=== PATIENT | female | born 1965 | race Caucasian/White ===

== ENCOUNTER 2016-09-07 20:22 | Emergency (ER) | payer BC, OTHER ==
[~2016-09-07] VITALS: Ht 160 cm; Wt 62.0 kg
[~2016-09-07 20:22] MED LIST: VALS160T20
[2016-09-07 20:40] VITALS: Ht 160 cm; Wt 62.0 kg
[2016-09-07 21:23] VITALS: TEMP 97
[2016-09-07 21:44] LABS: ADD SCAN DIFF NO
[2016-09-07 21:47] LABS: BASOPHILS % 0.4 % (0.0-2.0); EOSINOPHILS # 0.1 10^3/ul (0.0-0.5); EOSINOPHILS % 1.1 % (0.0-7.0); HEMATOCRIT 43.5 % (37.0-47.0); HEMOGLOBIN 14.6 g/dl (12.0-16.0); LYMPHOCYTES # 2.3 10^3/ul (0.8-2.9); LYMPHOCYTES % 30.8 % (15.0-51.0); MEAN CORPUSCULAR HEMOGLOBIN 30.2 pg (29.0-33.0); MEAN CORPUSCULAR HGB CONC 33.6 g/dl (32.0-37.0); MEAN CORPUSCULAR VOLUME 90.1 fl (82.0-101.0); MEAN PLATELET VOLUME 9.4 fl (7.4-10.4); MONOCYTE # 0.5 10^3/ul (0.3-0.9); MONOCYTES % 6.8 % (0.0-11.0); NEUTROPHIL # 4.5 10^3/ul (1.6-7.5); NEUTROPHILS % 60.8 % (39.0-77.0); PLATELET COUNT 355 10^3/UL (140-415); RED BLOOD COUNT 4.83 10^6/ul (4.20-5.40); RED CELL DISTRIBUTION WIDTH 13.3 % (11.5-14.5); WHITE BLOOD COUNT 7.4 10^3/ul (4.8-10.8)
[2016-09-07 21:49] LABS: ADD UMIC YES; UR ASCORBIC ACID NEGATIVE (NEGATIVE); UR BILIRUBIN (Dip) NEGATIVE (NEGATIVE); UR BLOOD (Dip) 3+ mg/dL (NEGATIVE); UR CLARITY CLEAR (CLEAR); UR COLOR YELLOW (YELLOW); UR GLUCOSE (Dip) 3+ mg/dL (NEGATIVE); UR KETONES (Dip) NEGATIVE (NEGATIVE); UR LEUKOCYTE ESTERASE (Dip) NEGATIVE Leu/ul (NEGATIVE); UR NITRITE (Dip) NEGATIVE (NEGATIVE); UR RBC 7 /HPF (0-5); UR SPECIFIC GRAVITY (Dip) 1.025 (1.003-1.030); UR TOTAL PROTEIN (Dip) NEGATIVE (NEGATIVE); UR UROBILINOGEN (Dip) NEGATIVE (NEGATIVE)
[2016-09-07 22:04] LABS: INR 0.91; PROTIME 12.3 Sec (12.2-14.2)
[2016-09-07 22:05] LABS: PARTIAL THROMBOPLASTIN TIME 26.7 Sec (25.0-35.0)
[2016-09-07 22:15] LABS: ALANINE AMINOTRANSFERASE 25 IU/L (13-69); ALBUMIN 4.9 g/dl (3.3-4.9); ALBUMIN/GLOBULIN RATIO 1.63; ALKALINE PHOSPHATASE 91 IU/L (42-121); AMYLASE 97 U/L (11-123); ANION GAP 16 (8-16); ASPARTATE AMINO TRANSFERASE 27 IU/L (15-46); BILIRUBIN,INDIRECT 0.2 mg/dl (0-1.1); BILIRUBIN,TOTAL 0.2 mg/dl (0.2-1.3); BLOOD UREA NITROGEN 16 mg/dl (7-20); CALCIUM 9.8 mg/dl (8.4-10.2); CARBON DIOXIDE 27 mmol/L (21-31); CHLORIDE 102 mmol/L (97-110); CREATININE 0.66 mg/dl (0.44-1.00); GLUCOSE 91 mg/dl (70-220); POTASSIUM 3.4 mmol/L (3.5-5.1); SODIUM 142 mmol/L (135-144); TOTAL PROTEIN 7.9 g/dl (6.1-8.1)
[2016-09-07 22:28] LABS: TROPONIN-I < 0.012 ng/ml (0.00-0.12)
--- NOTE | 2016-09-07 23:38 | RADRPT ---
PROCEDURE: Chest. CLINICAL INDICATION: Chest pain. TECHNIQUE: Single frontal view of the chest was obtained. COMPARISON: None. FINDINGS: The cardiac silhouette is within normal limits. The aortic arch is unremarkable. There is no focal consolidation, vascular congestion or pleural effusion. There is no pneumothorax. IMPRESSION: No evidence for active cardiopulmonary disease. .Chava Garcia MD, MD Date Time Electronically viewed and signed by .Chava Garcia MD, MD on 09/07/2016 23:37 .T/
--- NOTE | 2016-09-08 00:04 | ERD ---
ER Documentation Chief Complaint Date/Time DATE: 09/08/16 TIME: 00:03 Chief Complaint generalized weakness since yesterday with r jaw pain HPI 51-year-old with generalized weakness since yesterday with right jaw pain. Patient does not has felt generally weak with no focal neurological complaints. Denies any fevers or chills. Denies any nausea or vomiting. Denies any other current complaints. ROS All systems reviewed and are negative except as per history of present illness. Medications Home Meds Reported Medications Valsartan* (Diovan*) 160 Mg Tablet 04/19/10 Allergies Allergies: Coded Allergies: Penicillins (Verified Allergy, Mild, SOB, BODY SWALLON, 04/19/10) Tetracycline (Verified Allergy, Mild, DIFFICULTY BREATHING SWALLON BODY, ) PMhx/Soc History of Surgery: Yes (Hysty, colon, ) Anesthesia Reaction: No Hx Neurological Disorder: No Hx Respiratory Disorders: No Hx Cardiac Disorders: No Hx Psychiatric Problems: No Hx Miscellaneous Medical Probl: No Hx Alcohol Use: Yes Hx Substance Use: No Hx Tobacco Use: Yes Smoking Status: Current some day smoker Physical Exam Vitals Vital Signs Date Time Temp Pulse Resp B/P Pulse Ox O2 Delivery O2 Flow Rate FiO2 09/07/16 23:12 71 18 143/63 99 Room Air 09/07/16 21:23 97.0 77 18 120/79 98 Room Air 09/07/16 20:40 97.4 86 18 136/68 100 Physical Exam Const: [] Head: Atraumatic Eyes: Normal Conjunctiva ENT: Normal External Ears, Nose and Mouth. Neck: Full range of motion..~ No meningismus. Resp: Clear to auscultation bilaterally Cardio: Regular rate and rhythm, no murmurs Abd: Soft, non tender, non distended. Normal bowel sounds Skin: No petechiae or rashes Back: No midline or flank tenderness Ext: No cyanosis, or edema Neur: Awake and alert Psych: Normal Mood and Affect Result Diagram: 09/07/16212709/07/162127 Results 24 hrs Laboratory Tests Test 09/07/16 21:20 09/07/16 21:28 Urine Color YELLOW Urine Clarity CLEAR Urine pH 5.0 Urine Specific [place] 1.025 Urine Ketones NEGATIVEmg/dL Urine Nitrite NEGATIVEmg/dL Urine Bilirubin NEGATIVEmg/dL Urine Urobilinogen NEGATIVEmg/dL Urine Leukocyte Esterase NEGATIVELeu/ul Urine Microscopic RBC 7/HPF Urine Microscopic WBC 1/HPF Urine Hemoglobin 3+mg/dL Urine Glucose 3+mg/dL Urine Total Protein NEGATIVEmg/dl White Blood Count 7.410^3/ul Red Blood Count 4.8310^6/ul Hemoglobin 14.6g/dl Hematocrit 43.5% Mean Corpuscular Volume 90.1fl Mean Corpuscular Hemoglobin 30.2pg Mean Corpuscular Hemoglobin Concent 33.6g/dl Red Cell Distribution Width 13.3% Platelet Count 16916^3/UL Mean Platelet Volume 9.4fl Neutrophils % 60.8% Lymphocytes % 30.8% Monocytes % 6.8% Eosinophils % 1.1% Basophils % 0.4% Nucleated Red Blood Cells % 0.0/100WBC Neutrophils # 4.510^3/ul Lymphocytes # 2.310^3/ul Monocytes # 0.510^3/ul Eosinophils # 0.110^3/ul Basophils # 0.010^3/ul Nucleated Red Blood Cells # 0.010^3/ul Prothrombin Time 12.3Sec Prothrombin Time Ratio 1.0 INR International Normalized Ratio 0.91 Activated Partial Thromboplast Time 26.7Sec Sodium Level 142mmol/L Potassium Level 3.4mmol/L Chloride Level 102mmol/L Carbon Dioxide Level 27mmol/L Anion Gap 16 Blood Urea Nitrogen 16mg/dl Creatinine 0.66mg/dl Glucose Level 91mg/dl Calcium Level 9.8mg/dl Total Bilirubin 0.2mg/dl Direct Bilirubin 0.00mg/dl Indirect Bilirubin 0.2mg/dl Aspartate Amino Transf (AST/SGOT) 27IU/L Alanine Aminotransferase (ALT/SGPT) 25IU/L Alkaline Phosphatase 91IU/L Troponin I < 0.012ng/ml Total Protein 7.9g/dl Albumin 4.9g/dl Globulin 3.00g/dl Albumin/Globulin Ratio 1.63 Amylase Level 97U/L Lipase 126U/L Procedures/MDM EKG: Rate/Rhythm: [Normal Sinus Rhythm] QRS, ST, T-waves: [No changes consistent w/ acute ischemia] Impression: [No evidence of ischemia or arrhythmia] Chest X-ray 1V Interpreted by me: Soft Tissue: No acute abnormalities Bones: No acute abnormalities Mediastinum/Cardiac Silhouette/Lungs: [No acute abnormalities] Medical decision-making: This very pleasant patient comes with generalized weakness. At this point clinically stable for outpatient management. Patient will be discharged home. Return for worsening symptoms. Departure Diagnosis: Primary Impression: Acute weakness Condition: Stable ERICH CHRISTIAN Sep 08, 2016 00:04
[2016-09-08 00:31] VITALS: BP 141/63; PULSE 72; RESP 18
== END 2016-09-08 00:33 | disposition home or self-care (01) ==
LOC: E/R 20:22
DX: R53.1 Weakness (principal); F17.210 Nicotine dependence, cigarettes, uncomplicated; R07.9 Chest pain, unspecified
CPT/HCPCS: 71010; 80053; 81001; 82150; 83690; 84484; 85025; 85610; 85730; 87086; 93005

== ENCOUNTER 2017-02-06 21:10 | Emergency (ER) | payer OTHER ==
[~2017-02-06] VITALS: Ht 162.6 cm; Wt 64.8 kg
[2017-02-06 21:28] VITALS: Ht 162.6 cm; Wt 64.8 kg
[2017-02-07] MEDS ORDERED: ONDANSETRON 4 MG INJ IV STA ×2 (03:18→06:10)
[2017-02-07] MEDS ORDERED: morphine 4 MG/ML VIAL IV STA ×2 (03:18→06:10)
[2017-02-07] MEDS ORDERED: SOD CHLORIDE 0.9% 1,000 ML IV STA (03:18)
--- NOTE | 2017-02-07 03:39 | ERD ---
ER Documentation Chief Complaint Chief Complaint left side hip pain, scab on left hip, back pain, HPI This is a 51-year-old female with a history of diverticulosis status post a colon resection years ago, who presents to the emergency department for complaints of left lower quadrant abdominal pain which has been intermittent and gradually worsening over the past 10 days. Patient noted similar pain previously when she developed perforation and states that at that time she also had blood in her urine. Patient states the pain currently is worse when eating or defecating. She denies diarrhea but notes intermittent and chronic constipation for which she has attempted to treat with lactulose. She has attempted to treat her pain with ranitidine and Motrin 800 mg at home with only minimal relief. She rates her pain at an intermittent cramping 7 out of 10. Patient also reports a painful rash to the left side of her abdomen which began 2 days ago and has gradually spread. She denies fever, itching, nausea, vomiting, chest pain, shortness of breath. She denies blood in her stool or hematuria. She denies dysuria or vaginal discharge. ROS All systems reviewed and are negative except as per history of present illness. Medications Home Meds Reported Medications Valsartan* (Diovan*) 160 Mg Tablet 04/19/10 Allergies Allergies: Coded Allergies: Penicillins (Verified Allergy, Mild, SOB, BODY SWALLON, 02/07/17) tetracycline (Verified Allergy, Mild, DIFFICULTY BREATHING SWALLON BODY, 02/07/17) PMhx/Soc History of Surgery: Yes (Hysty, colon, ) Anesthesia Reaction: No Hx Neurological Disorder: No Hx Respiratory Disorders: No Hx Cardiac Disorders: No Hx Psychiatric Problems: No Hx Miscellaneous Medical Probl: No Hx Alcohol Use: Yes Hx Substance Use: No Hx Tobacco Use: Yes Smoking Status: Current some day smoker Physical Exam Vitals Vital Signs Date Time Temp Pulse Resp B/P Pulse Ox O2 Delivery O2 Flow Rate FiO2 02/06/17 21:28 98.8 78 19 162/80 100 Physical Exam Const: Developed, well-nourished, in no acute distress Head: Atraumatic Eyes: Normal Conjunctiva ENT: Normal External Ears, Nose and Mouth. Neck: Full range of motion..~ No meningismus. Resp: Clear to auscultation bilaterally Cardio: Regular rate and rhythm, no murmurs Abd: Soft, left lower quadrant tender to deep palpation, non distended. Normal bowel sounds, no palpable masses, no peritoneal signs. Skin: No petechiae or rashes Back: No midline or flank tenderness Chin: Vesicular and erythematous rash in a dermatomal distribution to the left lateral abdomen significant tenderness to palpation. Neur: Awake and alert Psych: Normal Mood and Affect Result Diagram: 02/07/17 0350 02/07/17 0350 Results 24 hrs Laboratory Tests Test 02/07/17 03:50 02/07/17 04:05 White Blood Count 5.010^3/ul Red Blood Count 4.3910^6/ul Hemoglobin 13.5g/dl Hematocrit 38.6% Mean Corpuscular Volume 87.9fl Mean Corpuscular Hemoglobin 30.8pg Mean Corpuscular Hemoglobin Concent 35.0g/dl Red Cell Distribution Width 12.1% Platelet Count 26146^3/UL Mean Platelet Volume 9.5fl Neutrophils % 58.5% Lymphocytes % 28.0% Monocytes % 9.7% Eosinophils % 3.0% Basophils % 0.6% Nucleated Red Blood Cells % 0.0/100WBC Neutrophils # 2.910^3/ul Lymphocytes # 1.410^3/ul Monocytes # 0.510^3/ul Eosinophils # 0.210^3/ul Basophils # 0.010^3/ul Nucleated Red Blood Cells # 0.010^3/ul Sodium Level 144mmol/L Potassium Level 3.5mmol/L Chloride Level 105mmol/L Carbon Dioxide Level 27mmol/L Anion Gap 16 Blood Urea Nitrogen 14mg/dl Creatinine 0.66mg/dl Glucose Level 76mg/dl Calcium Level 9.3mg/dl Total Bilirubin 0.3mg/dl Direct Bilirubin 0.00mg/dl Indirect Bilirubin 0.3mg/dl Aspartate Amino Transf (AST/SGOT) 26IU/L Alanine Aminotransferase (ALT/SGPT) 33IU/L Alkaline Phosphatase 83IU/L Total Protein 7.3g/dl Albumin 4.0g/dl Globulin 3.30g/dl Albumin/Globulin Ratio 1.21 Lipase 128U/L Urine Color YELLOW Urine Clarity CLEAR Urine pH 5.0 Urine Specific [place] 1.015 Urine Ketones NEGATIVEmg/dL Urine Nitrite NEGATIVEmg/dL Urine Bilirubin NEGATIVEmg/dL Urine Urobilinogen NEGATIVEmg/dL Urine Leukocyte Esterase NEGATIVELeu/ul Urine Microscopic RBC 9/HPF Urine Microscopic WBC 4/HPF Urine Bacteria FEW/HPF Urine Mucus FEW/HPF Urine Hemoglobin 3+mg/dL Urine Glucose NEGATIVEmg/dL Urine Total Protein NEGATIVEmg/dl Current Medications Medications (Trade) Dose Ordered Sig/Kasey Route PRN Reason Start Time Stop Time Status Last Admin Dose Admin Sodium Chloride (NS) 1,000 ml @ 1,000 mls/hr Q1H STAT IV 02/07/17 03:18 02/07/17 04:17 DC 02/07/17 03:59 Morphine Sulfate (morphine) 4 mg ONCE STAT IV 02/07/17 03:18 02/07/17 03:20 DC 02/07/17 03:59 Ondansetron HCl 4 mg 4 mg ONCE STAT IV 02/07/17 03:18 02/07/17 03:20 DC 02/07/17 04:00 Sodium Chloride (NS) 1,000 ml @ 1,000 mls/hr Q1H ONCE IV 02/07/17 06:30 02/07/17 07:29 Morphine Sulfate (morphine) 4 mg ONCE STAT IV 02/07/17 06:10 02/07/17 06:11 DC Ondansetron HCl (Zofran Inj) 4 mg ONCE STAT IV 02/07/17 06:10 02/07/17 06:11 DC Procedures/MDM PROCEDURE: CT of the abdomen and pelvis without contrast CLINICAL INDICATION: Left upper and lower quadrant abdominal pain. TECHNIQUE: Spiral CT images through the abdomen and pelvis without the use of contrast. The administered radiation dose is CTDI 10.36 mGy and DLP 573.54 mGy *cm. Coronal and sagittal reformatted images were not submitted. One or more of the following dose reduction techniques were used: automated exposure control , adjustment of the mA and/or kV according to patient size, or use of iterative reconstruction technique. DICOM images are available. COMPARISON: None FINDINGS: Lack of oral and intravenous contrast somewhat limits evaluation. The lung bases are clear. No pleural effusion is seen. The heart is normal in size. There is a small hiatal hernia.. The liver, spleen, adrenal glands and pancreas are normal in appearance. There is no evidence of cholelithiasis or biliary ductal dilatation. The kidneys are normal in size and contour. There is no evidence of hydronephrosis or nephrolithiasis. The aorta is normal in caliber. The proximal duodenum appears markedly thickened. Adjacent small fluid collection and air fluid level are seen. Whether this is intraluminal is uncertain. Evaluation is limited without contrast.. There is no evidence for bowel obstruction, free air, or abscess. The appendix is surgically absent. there is abundant stool in the colon and rectum. No adenopathy or ascites is seen. The uterus is absent. The bladder is decompressed. Bilateral sacroiliac joints are narrowed and sclerotic.. IMPRESSION: Apparent marked thickening of the proximal duodenum. Adjacent small fluid collection and air-fluid level. Whether this is within bowel is uncertain. Evaluation is limited without contrast. Follow-up contrast enhanced CT with oral contrast recommended. Abundant stool in the colon and rectum. This is a 51-year-old female with a history of diverticulosis with complication and resection, who presents to the emergency department for gradually worsening and intermittent left lower quadrant abdominal pain 10 days. Patient also reports a rash which is identified as shingles on physical exam. Physical exam with left lower quadrant tenderness. Otherwise nontoxic-appearing, well- nourished, and pleasant during exam. CBC showed no evidence of systemic infection or severe anemia. CMP showed no evidence of electrolyte abnormalities, severe acidosis, alkalosis , renal failure, or liver disease. Lipase showed no evidence of acute pancreatitis. UA showed 3+ hematuria Noncontrast CT with evidence of marked thickening of the proximal duodenum with adjacent small fluid collection and air-fluid level concerning for perforation. Case was discussed with supervising physician Anant Alonzo who recommended repeat CT with contrast. She received IV fluids, pain and nausea medication while in the emergency department. Case was transferred to physician per diem physical therapist assistant Michelle Borja pending CT results. Departure Diagnosis: Primary Impression: Abdominal pain Abdominal location: left lower quadrant Qualified Code: R10.32 - Left lower quadrant pain Additional Impression: Shingles Herpes zoster complications: without complications Qualified Code: B02.9 - Herpes zoster without complication PEDRO PABLO NAQVI PA-C Feb 07, 2017 03:39
[2017-02-07 04:32] LABS: BASOPHILS % 0.6 % (0.0-2.0); EOSINOPHILS # 0.2 10^3/ul (0.0-0.5); HEMATOCRIT 38.6 % (37.0-47.0); HEMOGLOBIN 13.5 g/dl (12.0-16.0); LYMPHOCYTES # 1.4 10^3/ul (0.8-2.9); MEAN CORPUSCULAR HEMOGLOBIN 30.8 pg (29.0-33.0); MEAN CORPUSCULAR VOLUME 87.9 fl (82.0-101.0); MEAN PLATELET VOLUME 9.5 fl (7.4-10.4); MONOCYTE # 0.5 10^3/ul (0.3-0.9); MONOCYTES % 9.7 % (0.0-11.0); NEUTROPHIL # 2.9 10^3/ul (1.6-7.5); NEUTROPHILS % 58.5 % (39.0-77.0); PLATELET COUNT 274 10^3/UL (140-415); RED BLOOD COUNT 4.39 10^6/ul (4.20-5.40); RED CELL DISTRIBUTION WIDTH 12.1 % (11.5-14.5)
[2017-02-07 04:47] LABS: ADD UMIC YES; UR ASCORBIC ACID NEGATIVE (NEGATIVE); UR BACTERIA FEW /HPF (NONE SEEN); UR BILIRUBIN (Dip) NEGATIVE (NEGATIVE); UR BLOOD (Dip) 3+ mg/dL (NEGATIVE); UR CLARITY CLEAR (CLEAR); UR COLOR YELLOW (YELLOW); UR GLUCOSE (Dip) NEGATIVE (NEGATIVE); UR KETONES (Dip) NEGATIVE (NEGATIVE); UR LEUKOCYTE ESTERASE (Dip) NEGATIVE Leu/ul (NEGATIVE); UR MUCUS FEW /HPF (NONE SEEN); UR NITRITE (Dip) NEGATIVE (NEGATIVE); UR RBC 9 /HPF (0-5); UR SPECIFIC GRAVITY (Dip) 1.015 (1.003-1.030); UR TOTAL PROTEIN (Dip) NEGATIVE (NEGATIVE); UR UROBILINOGEN (Dip) NEGATIVE (NEGATIVE)
--- NOTE | 2017-02-07 04:56 | RADRPT ---
PROCEDURE: CT of the abdomen and pelvis without contrast CLINICAL INDICATION: Left upper and lower quadrant abdominal pain. TECHNIQUE: Spiral CT images through the abdomen and pelvis without the use of contrast. The admin istered radiation dose is CTDI 10.36 mGy and DLP 573.54 mGy*cm. Coronal and sagittal reformatted im ages were not submitted. One or more of the following dose reduction techniques were used: automate d exposure control, adjustment of the mA and/or kV according to patient size, or use of iterative re construction technique. DICOM images are available. COMPARISON: None FINDINGS: Lack of oral and intravenous contrast somewhat limits evaluation. The lung bases are clear. No pl eural effusion is seen. The heart is normal in size. There is a small hiatal hernia.. The liver, spleen, adrenal glands and pancreas are normal in appearance. There is no evidence of cho lelithiasis or biliary ductal dilatation. The kidneys are normal in size and contour. There is no ev idence of hydronephrosis or nephrolithiasis. The aorta is normal in caliber. The proximal duodenum appears markedly thickened. Adjacent small fluid collection and air fluid leve l are seen. Whether this is intraluminal is uncertain. Evaluation is limited without contrast.. Th ere is no evidence for bowel obstruction, free air, or abscess. The appendix is surgically absent. there is abundant stool in the colon and rectum. No adenopathy or ascites is seen. The uterus is ab sent. The bladder is decompressed. Bilateral sacroiliac joints are narrowed and sclerotic.. IMPRESSION: Apparent marked thickening of the proximal duodenum. Adjacent small fluid collection and air-fluid l evel. Whether this is within bowel is uncertain. Evaluation is limited without contrast. Follow-up c ontrast enhanced CT with oral contrast recommended. Abundant stool in the colon and rectum. RPTAT: HCNS Physician Jeremías Date Time Electronically viewed and signed by Physician Jeremías on 02/07/2017 04:56 CS/
[2017-02-07 04:59] LABS: ALBUMIN/GLOBULIN RATIO 1.21; BILIRUBIN,INDIRECT 0.3 mg/dl (0-1.1); BILIRUBIN,TOTAL 0.3 mg/dl (0.2-1.3); CALCIUM 9.3 mg/dl (8.4-10.2); CREATININE 0.66 mg/dl (0.44-1.00); POTASSIUM 3.5 mmol/L (3.5-5.1); TOTAL PROTEIN 7.3 g/dl (6.1-8.1)
[2017-02-07] MEDS ORDERED: SOD CHLORIDE 0.9% 1,000 ML IV ONE (06:30)
[2017-02-07] MEDS ORDERED: ACETAMINOPHEN 325 MG TAB PO ONE (08:00)
[2017-02-07] MEDS ORDERED: IOHEXOL 300MG/ML 150 ML BTL ONE (08:02)
[2017-02-07] MEDS ORDERED: SOD CHLORIDE 0.9% 100 ML ONE (08:02)
--- NOTE | 2017-02-07 08:57 | RADRPT ---
PROCEDURE: CT Abdomen and pelvis with contrast CLINICAL INDICATION: Left lower quadrant pain, history of perforated diverticulitis, bowel resecti on. TECHNIQUE: Spiral CT images through the abdomen and pelvis without administration of oral and duri ng intravenous administration of 90 cc of Omnipaque-300 contrast material. Multiplanar reconstructi ons. The total exam CTDI equals 13.87 mGy and the total exam DLP equals 730.83 mGy-cm. One or more of the following dose reduction techniques were used: automated exposure control, adjustment of the mA and/or kV according to patient size, or use of iterative reconstruction technique. DICOM images are available. COMPARISON: CT 02/07/2017 FINDINGS: Slight atelectasis of the lung bases is seen. No pleural effusion is seen. . the heart is normal in size. There is a small hiatal hernia. There is prominent periportal hypodensity or edema . The liver and spleen are normal in size and con tour. The adrenal glands and pancreas are normal. The gallbladder is seen without evidence of cholel ithiasis. The common duct is normal in caliber. The kidneys are normal in size and contour. There is no evidence of hydronephrosis or nephrolithiasis. Symmetric renal enhancement demonstrated. The ao rta is normal in caliber. No adenopathy or ascites is seen. The thickened proximal duodenum is again noted. The adjacent gas lucency and fluid appear intralumin al. There is no evidence for bowel obstruction, free air, or abscess. The appendix is surgically a bsent. There is abundant stool in the colon and rectum. Mild rectal wall thickening and perirectal s tranding are seen. The uterus is absent. The bladder is normal. The osseous structures are intact. IMPRESSION: Thickened proximal duodenum is again seen. Adjacent gas lucency and fluid appear intraluminal. Constipation and probable mild proctitis. Nonspecific periportal edema. RPTAT: HCNS Physician Jeremías Date Time Electronically viewed and signed by Physician Jeremías on 02/07/2017 08:57 CS/
--- NOTE | 2017-02-07 11:00 | EN ---
Date/Time of Note Date/Time of Note DATE: 02/07/17 TIME: 10:51 ER Progress Note 51-year-old female with a history of diverticulitis status post colon resection presents to the ED with a 10 day history of moderate, generalized, nonradiating crampy abdominal pain. Patient had CTs of the abdomen and pelvis with and without contrast there is significant for thickening of the duodenum, constipation and possibly proctitis. I discussed the findings with the radiologist. The duodenal findings are of concern as they may represent infection versus inflammation versus neoplasm and will need further evaluation with upper GI series or CT with oral contrast but did not represent acute findings at this point. She feels that the etiology of the patient's pain is likely constipation and proctitis. Patient states her pain is decreased with analgesics. Physical examination abdomen is soft, bowel sounds are present and there is mild diffuse lower abdominal tenderness but no rebound, guarding or signs of peritonitis. Patient also has vesicles on erythematous base consistent with herpes zoster on the left chest in the T-8 distribution. Patient is stable for discharge with cathartics constipation, Flagyl/Cipro for proctitis, antivirals for zoster and outpatient follow-up as counseled. HUDSON RUTHERFORD MD Feb 07, 2017 11:00
[2017-02-07] MEDS ORDERED: CIPR500T4 PO (11:01)
[2017-02-07] MEDS ORDERED: MAGN296S40 PO (11:01)
[2017-02-07] MEDS ORDERED: ACYC800T57 PO (11:01)
[2017-02-07] MEDS ORDERED: ACET500C5 PO (11:01)
[2017-02-07] MEDS ORDERED: DOCU-144 PO (11:01)
[2017-02-07] MEDS ORDERED: METR500T PO (11:01)
--- NOTE | 2017-02-07 11:08 | EN ---
Date/Time of Note Date/Time of Note DATE: 02/07/17 TIME: 11:05 ER Progress Note Patient was signed out to me by SWAPNIL Hawthorne, pending CT abdomen and pelvis with IV contrast. PROCEDURE: CT Abdomen and pelvis with contrast CLINICAL INDICATION: Left lower quadrant pain, history of perforated diverticulitis, bowel resection. TECHNIQUE: Spiral CT images through the abdomen and pelvis without administration of oral and during intravenous administration of 90 cc of Omnipaque-300 contrast material. Multiplanar reconstructions. The total exam CTDI equals 13.87 mGy and the total exam DLP equals 730.83 mGy-cm. One or more of the following dose reduction techniques were used: automated exposure control , adjustment of the mA and/or kV according to patient size, or use of iterative reconstruction technique. DICOM images are available. COMPARISON: CT 02/07/2017 FINDINGS: Slight atelectasis of the lung bases is seen. No pleural effusion is seen. . the heart is normal in size. There is a small hiatal hernia. There is prominent periportal hypodensity or edema . The liver and spleen are normal in size and contour. The adrenal glands and pancreas are normal. The gallbladder is seen without evidence of cholelithiasis. The common duct is normal in caliber. The kidneys are normal in size and contour. There is no evidence of hydronephrosis or nephrolithiasis. Symmetric renal enhancement demonstrated. The aorta is normal in caliber. No adenopathy or ascites is seen. The thickened proximal duodenum is again noted. The adjacent gas lucency and fluid appear intraluminal. There is no evidence for bowel obstruction, free air, or abscess. The appendix is surgically absent. There is abundant stool in the colon and rectum. Mild rectal wall thickening and perirectal stranding are seen. The uterus is absent. The bladder is normal. The osseous structures are intact. IMPRESSION: Thickened proximal duodenum is again seen. Adjacent gas lucency and fluid appear intraluminal. Constipation and probable mild proctitis. Nonspecific periportal edema. RPTAT: HCNS Physician Jeremías Date Time Electronically viewed and signed by Physician Jeremías on 02/07/2017 08: 57 CS/ CC: PEDRO PABLO NAQVI PA-C, I discussed CT results with Dr. Naik. Dr. Naik examined the patient and spoke to the radiologist. Dr. Naik suggested the patient can be managed outpatient. Patient appears well, stable for discharge and outpatient management. Medical decision making shared with patient and family. Education provided to patient and family. Patient and family expressed understanding of the plan. Medications on discharge: Acyclovir, Cipro, Flagyl, magnesium citrate, Colace, Tylenol. Follow-up: Primary care provider in 2-3 days or return to ED if worse. Disclaimer: Inadvertent spelling and grammatical errors are likely due to EHR/ dictation software use and do not reflect on the overall quality of patient care. Also, please note that the electronic time recorded on this note does not necessarily reflect the actual time of the patient encounter. DANIEL SAMPSON NP Feb 07, 2017 11:08
[2017-02-07 12:42] VITALS: BP 140/71; PULSE 71; RESP 18; TEMP 98.6
== END 2017-02-07 12:43 | disposition home or self-care (01) ==
LOC: FTE 21:10
DX: R10.32 Left lower quadrant pain (principal); B02.9 Zoster without complications; F17.210 Nicotine dependence, cigarettes, uncomplicated
CPT/HCPCS: 36415; 74176; 74177; 80053; 81001; 83690; 85025; 96374; 96375; 99285; J2270; J2405; J7030; Q9967

== ENCOUNTER 2017-04-13 16:59 | Emergency (ER) | END 2017-04-13 23:41 | disposition home or self-care (01) ==